=== PATIENT | female | born 1990 | race Two or more races ===

== ENCOUNTER 2017-03-26 08:29 | Inpatient (IN) | payer MEDICAID ==
[~2017-03-26] VITALS: Ht 170.2 cm; Wt 84.5 kg
[~2017-03-26 08:29] MED LIST: DOCU-131 PO; IBUP-1222 PO; PREN1TAB98 PO
[2017-03-26 08:41] VITALS: BP 140/78
[2017-03-26] MEDS ORDERED: D5%-LACTATED RINGERS 1,000 ML IV SCH (09:05)
[2017-03-26] MEDS ORDERED: LACTATED RINGERS 1,000 ML IV SCH (09:05)
[2017-03-26] MEDS ORDERED: OXYTOCIN 30U/ 0.9% NaCL 500ML 500 ML IV ONE (09:05)
[2017-03-26] MEDS ORDERED: OXYTOCIN 30U/ 0.9% NaCL 500ML 0 ML ONE (09:11)
[2017-03-26] MEDS ORDERED: LIDOCAINE 1%, 20ML ONE (09:11)
[2017-03-26] MEDS ORDERED: NEWBORN KIT ONE ×2 (09:11→09:28)
[2017-03-26] MEDS ORDERED: MISOPROSTOL 200 MCG TABLET ONE ×2 (09:11→14:04)
[2017-03-26] MEDS ORDERED: OXYTOCIN 30U/ 0.9% NaCL 500ML 500 ML ONE ×2 (09:28→14:46)
[2017-03-26] MEDS ORDERED: FENTANYL PF 100 MCG/2ML IV PRN ×2 (09:30→14:30)
[2017-03-26] MEDS ORDERED: ONDANSETRON 2MG/ML, 2ML IVPush PRN (09:30)
[2017-03-26] MEDS ORDERED: FENTANYL PF 100 MCG/2ML IVPush PRN ×2 (09:30→14:30)
[2017-03-26] MEDS ORDERED: METOCLOPRAMIDE 5 MG/ML, 2ML IVPush PRN ×2 (09:30→14:30)
[2017-03-26] MEDS ORDERED: SODIUM CITRATE/CITRIC ACID 30 ML UDC PO PRN (09:30)
[2017-03-26 09:32] LABS: HEMATOCRIT 32.4 % (34.6-47.8); HEMOGLOBIN 10.5 g/dL (11.7-16.4); WHITE BLOOD COUNT 10.2 x10^3/uL (3.4-10)
[2017-03-26] MEDS ORDERED: FENTANYL PF 100 MCG/2ML ONE ×2 (09:32→12:04)
[2017-03-26] MEDS ORDERED: ONDANSETRON 2MG/ML, 2ML ONE (09:48)
[2017-03-26] MEDS ORDERED: OXYTOCIN 30U/ 0.9% NaCL 500ML 500 ML IV PRN (11:33)
[2017-03-26] MEDS: OXYTOCIN 30U/ 0.9% NaCL 500ML 500 ML IV SCH ×3 (12:36→15:28)
[2017-03-26] MEDS ORDERED: OXYTOCIN 30U/ 0.9% NaCL 500ML 500 ML IV SCH (12:36)
[2017-03-26] MEDS ORDERED: IBUPROFEN 600 MG TABLET ONE (12:44)
[2017-03-26] MEDS ORDERED: BISACODYL 10 MG SUPP PR PRN ×2 (13:00→14:30)
[2017-03-26] MEDS ORDERED: CALCIUM CARBONATE 500 MG TAB.CHEW PO PRN ×2 (13:00→14:30)
[2017-03-26] MEDS ORDERED: HYDROcodone/APAP 5/325 TABLET PO PRN ×4 (13:00→14:30)
[2017-03-26] MEDS ORDERED: MISOPROSTOL 200 MCG TABLET PR PRN ×2 (13:00→14:30)
[2017-03-26] MEDS ORDERED: ACETAMINOPHEN 325 MG TABLET PO PRN ×4 (13:00→14:30)
[2017-03-26] MEDS ORDERED: IBUPROFEN 600 MG TABLET PO PRN (13:00)
[2017-03-26] MEDS ORDERED: ONDANSETRON 2MG/ML, 2ML IV PRN ×2 (13:00→14:30)
[2017-03-26] MEDS ORDERED: DOCUSATE 100 MG CAPSULE PO PRN (13:00)
[2017-03-26 14:45] VITALS: BP 129/80
[2017-03-26 20:30] VITALS: BP 121/74
[2017-03-26 20:47] LABS: HEMATOCRIT 33.2 % (34.6-47.8); HEMOGLOBIN 10.8 g/dL (11.7-16.4); WHITE BLOOD COUNT 12.5 x10^3/uL (3.4-10)
[2017-03-26] MEDS: IBUPROFEN 600 MG TABLET PO PRN (20:57)
[2017-03-26] MEDS: DOCUSATE 100 MG CAPSULE PO PRN (20:57)
[2017-03-27 00:15] VITALS: BP 130/82
[2017-03-27] MEDS: IBUPROFEN 600 MG TABLET PO PRN ×2 (03:17→09:43)
[2017-03-27 03:25] VITALS: BP 136/78
[2017-03-27 07:50] VITALS: BP 138/73
[2017-03-27] MEDS: DOCUSATE 100 MG CAPSULE PO PRN (08:17)
[2017-03-27] MEDS ORDERED: PRENATAL VIT/IRON/FA 1 EACH TABLET PO SCH ×2 (09:00)
[2017-03-27] MEDS ORDERED: DOCU-131 PO (13:36)
[2017-03-27] MEDS ORDERED: IBUP-1222 PO (13:36)
== END 2017-03-27 15:30 | disposition home or self-care (01) | DRG 775 ==
LOC: LDOP 08:29 → LDIP 09:04 → 2NW 14:43
PROVIDERS: ADMIT Obstetrics & Gynecology; ATTEND Obstetrics & Gynecology
PROC: 10E0XZZ Delivery of Products of Conception, External Approach (ICD-10-PCS; principal; 2017-03-26)
PROC: 10907ZC Drainage of Amniotic Fluid, Therapeutic from Products of Conception, Via Natural or Artificial Opening (ICD-10-PCS; 2017-03-26)
DX: O80 Encounter for full-term uncomplicated delivery (principal); Z37.0 Single live birth; Z3A.38 38 weeks gestation of pregnancy
CPT/HCPCS: 36415; 85025; 86850; 86900; J3010; J2590; J7120